=== PATIENT | male | born 1945 | race Caucasian/White ===

== ENCOUNTER → 2022-08-01 14:05 | Outpatient (BNVA) | payer MEDICARE, SELFPAY | PROVIDERS: Family Provider Family Medicine; PCP Family Medicine; Visit Provider Nurse Practitioner | DX: S97.102A Crushing injury of unspecified left toe(s), initial encounter (principal); X58.XXXA Exposure to other specified factors, initial encounter; M19.072 Primary osteoarthritis, left ankle and foot | CPT/HCPCS: 73660 ==

== ENCOUNTER 2023-04-01 06:00 | Outpatient (RCR) | payer MEDICARE, SELFPAY | END 2023-04-09 23:59 | disposition home or self-care (01) | LOC: GPT 06:00 | PROVIDERS: Visit Provider Internal Medicine Nephrology | DX: R53.1 Weakness (principal) | CPT/HCPCS: 97110; 97112; 97161 ==

== ENCOUNTER 2023-04-10 06:00 | Outpatient (RCR) | payer MEDICARE, SELFPAY | END 2023-05-10 23:59 | disposition home or self-care (01) | LOC: GPT 06:00 | PROVIDERS: Visit Provider Internal Medicine Nephrology | DX: R53.1 Weakness (principal) | CPT/HCPCS: 97110; 97112 ==

== ENCOUNTER 2023-05-11 06:00 | Outpatient (RCR) | payer MEDICARE, SELFPAY | END 2023-06-09 23:59 | disposition home or self-care (01) | LOC: GPT 06:00 | PROVIDERS: Visit Provider Internal Medicine Nephrology | DX: R53.1 Weakness (principal) | CPT/HCPCS: 97110; 97112; 97164; 97530 ==

== ENCOUNTER 2023-06-10 06:00 | Outpatient (RCR) | payer MEDICARE, SELFPAY | END 2023-07-10 23:59 | disposition home or self-care (01) | LOC: GPT 06:00 | PROVIDERS: Visit Provider Internal Medicine Nephrology | DX: R53.1 Weakness (principal) | CPT/HCPCS: 97110; 97112 ==

== ENCOUNTER 2023-07-02 14:05 | Outpatient (RCR) | payer MEDICARE, SELFPAY | END 2023-07-10 23:59 | disposition home or self-care (01) | LOC: SPT 14:05 | PROVIDERS: Visit Provider Nurse Practitioner | DX: R42 Dizziness and giddiness (principal) | CPT/HCPCS: 95992; 97161 ==

== ENCOUNTER 2023-07-11 06:00 | Outpatient (RCR) | payer MEDICARE, SELFPAY | END 2023-08-04 23:59 | disposition home or self-care (01) | LOC: GPT 06:00 | PROVIDERS: Visit Provider Internal Medicine Nephrology | DX: R53.1 Weakness (principal) | CPT/HCPCS: 97110; 97112 ==